=== PATIENT | male | born 1965 ===

== ENCOUNTER 2022-01-11 06:40 | Outpatient (CLI) | payer OTHER ==
--- NOTE | 2022-01-11 15:48 | XRAY Report ---
PROCEDURE: Lumbar Spine 2 View INDICATIONS: Lower back pain TECHNIQUE: 2 views of the lumbar spine were acquired. COMPARISON: None. FINDINGS: Bones: 5 [id number] vertebrae are present. There is trace retrolisthesis of L2 on L3, L3 on L4 . Mild to moderate disc and foraminal narrowing are noted at L5-S1. No vertebral body compression fra ctures. No suspicious bony lesions. Soft tissues: Overlying bowel gas pattern is normal. No suspicious soft tissue calcifications. IMPRESSION: Degenerative changes most notable at L5-S1 as above. Reviewed by: Indigo Gross MD on 01/11/2022 3:46 PM PST Approved by: Indgio Gross MD on 01/11/2022 3:46 PM PST Station ID: [id number]
== END 2022-01-11 06:41 | disposition home or self-care (01) ==
LOC: DI 06:40
PROVIDERS: ATTEND Student in an Organized Health Care Education/Training Program
DX: M47.817 Spondylosis without myelopathy or radiculopathy, lumbosacral region (principal); M43.16 Spondylolisthesis, lumbar region

== ENCOUNTER 2022-02-18 06:42 | Outpatient (CLI) | payer OTHER ==
[2022-02-18] MEDS ORDERED: IOVERSOL 320 100 ML VIAL IVP ONE ×2 (06:55→08:04)
[2022-02-18] MEDS ORDERED: IOVERSOL 320 50 ML VIAL ONE (07:09)
[2022-02-18] MEDS ORDERED: IOVERSOL 320 50 ML VIAL PO ONE (08:04)
--- NOTE | 2022-02-18 10:26 | CT Report ---
PROCEDURE: Abdomen/Pelvis W INDICATIONS: ABD PAIN CONTRAST: IV CONTRAST: Optiray 320 ml: 100 PO CONTRAST: Optiray 320 ml50 TECHNIQUE: After the administration of oral and intravenous contrast, 5 mm thick sections acquired from the diap hragms to the symphysis. 5 mm thick coronal and sagittal reformats were acquired. For radiation dos e reduction, the following was used: automated exposure control, adjustment of mA and/or kV accordin g to patient size. COMPARISON: None. FINDINGS: Image quality: Excellent. ABDOMEN: Lung bases: Lung bases are clear. Heart size is normal. Solid organs: Liver and spleen are normal in size and enhancement. Gallbladder is unremarkable. Bi liary system is non dilated. Pancreas enhances normally. No adrenal nodules. Kidneys demonstrate n ormal size and enhancement, without hydronephrosis. Small hypodensities in both kidneys are most lik dominic cysts. Peritoneum and bowel: Multiple diverticula are seen in the colon without signs of acute diverticulit is. Normal appendix. No free fluid or air. Nodes and vessels: No retroperitoneal or mesenteric adenopathy by size criteria. Aorta and inferior vena cava are normal in size. Miscellaneous: No ventral hernias. PELVIS: Genitourinary: Bladder wall thickness is normal. Miscellaneous: No inguinal hernias or adenopathy. Bones: No suspicious bony lesions. No vertebral body compression fractures. IMPRESSION: 1. No acute abnormality is identified in the abdomen or pelvis. 2. Colonic diverticulosis without signs of acute diverticulitis. Reviewed by: Anshu Mcwilliams MD on 02/18/2022 10:25 AM PDT Approved by: Anshu Mcwilliams MD on 02/18/2022 10:25 AM PDT Station ID: [id number]
== END 2022-02-18 06:43 | disposition home or self-care (01) ==
LOC: DI 06:42
PROVIDERS: ATTEND Student in an Organized Health Care Education/Training Program
DX: R10.9 Unspecified abdominal pain (principal); K57.30 Diverticulosis of large intestine without perforation or abscess without bleeding
CPT/HCPCS: 74177; Q9967

== ENCOUNTER 2023-04-25 03:51 | Emergency (ER) | payer OTHER ==
--- NOTE | 2023-04-25 03:55 | ED Physician Documentation ---
PD HPI CHEST PAIN - Stated complaint Stated Complaint: CHEST PX/SOA - History obtained from History obtained from: Patient - Additional information Additional information: HPI from patient. Patient complains of chest pain that has been episodic for the past 3 weeks. He describes the chest pain as dull, and indicates it is left of midline anterior chest. He says the episodes last anywhere from a few minutes to a few hours. He has not noticed any inciting, exacerbating, or ameliorating factors regarding the chest pain. He says that sometimes the pain will radiate towards the lower chest, but it does not radiate to his neck or extremities. He also has had some episodes radiating to the back. On my HPI, he denies shortness of breath. Patient was evaluated by his primary care provider last week for these symptoms. Patient says he had EKG and some outpatient blood test without concerning or diagnostic findings. He does recall that he was told his potassium was slightly low, specifically recalls the potassium level was 3.4. Patient says he had a stress test in 2020 and that the results were unremarkable. He says he does not have any known history of myocardial infarction or angina. Review of Systems Constitutional: denies: Fever, Chills, Sweats Cardiac: reports: Chest pain / pressure. denies: Palpitations, Pedal edema, Calf pain Respiratory: reports: Reviewed and negative GI: reports: Reviewed and negative PD PAST MEDICAL HISTORY - Past Medical History Past Medical History: Yes Cardiovascular: Hypertension, High cholesterol - Allergies Allergies/Adverse Reactions: Allergies Allergy/AdvReac Type Severity Reaction Status Date / Time No Known Drug Allergies Allergy Verified 04/25/23 04:07 PD ED PE NORMAL - Vitals Vital signs reviewed: Yes - General General: Alert and oriented X 3, No acute distress, Well developed/nourished - Neck Neck: Supple, no meningeal sign - Cardiac Cardiac: RRR, No gallop, No rub - Respiratory Respiratory: No respiratory distress, Clear bilaterally - Abdomen Abdomen: Normal bowel sounds, Soft, Non tender - Derm Derm: Normal color, Warm and dry - Extremities Extremities: No edema PD ED PE EXPANDED - Cardiac Cardiac: Murmur Present (1/6 mid-systolic murmur limited to left second intercostal space) Results - Vitals Vitals: Vital Signs - 24 hr 04/25/23 04/25/23 04/25/23 04:01 04:29 05:07 Temperature 36.9 C Heart Rate 96 77 70 Respiratory 18 15 13 Rate Blood Pressure 163/92 H 162/90 H 133/78 H O2 Saturation 100 100 100 04/25/23 04/25/23 04/25/23 05:30 06:00 06:17 Temperature Heart Rate 68 73 67 Respiratory 14 15 17 Rate Blood Pressure 131/86 H 131/86 H 121/72 O2 Saturation 99 100 100 Oxygen O2 Source Room air - EKG (time done) No standard instances EKG releavant findings:: EKG personally interpreted by author of this note. Relevant findings are: Rate: Rate (enter#) (83) Rhythm: NSR [place]: Normal Intervals: Normal NV QRS: Normal Ischemia: Normal ST segments - Labs Labs: Laboratory Tests 04/25/23 04/25/23 04/25/23 04:05 04:05 04:05 WBC 10.9 H RBC 5.55 Hgb 15.8 Hct 46.6 MCV 84.0 MCH 28.5 MCHC 33.9 RDW 13.0 Plt Count 242 MPV 10.4 Neut # (Auto) Not Reportable Lymph # (Auto) Not Reportable [place] # (Auto) Not Reportable Eos # (Auto) Not Reportable Baso # (Auto) Not Reportable Absolute Nucleated RBC Not Reportable Total Counted 100 Band Neuts % (Manual) 1 Abnorm Lymph % (Manual) 0 Nucleated RBC % Not Reportable Neutrophils # (Manual) 3.7 Lymphocytes # (Manual) 6.0 H Monocytes # (Manual) 0.4 Eosinophils # (Manual) 0.5 Basophils # (Manual) 0.2 H Differential Comment MANUAL DIFFERENTIAL WBC Morphology NORMAL APPEARANCE Platelet Estimate NORMAL (130-450,000) Platelet Morphology NORMAL APPEARANCE RBC Morph Micro Appear NORMAL APPEARANCE Sodium 141 Potassium 3.1 L Chloride 104 Carbon Dioxide 25 Anion Gap 12.0 BUN 14 Creatinine 0.9 Estimated GFR (MDRD) 87 L Glucose 129 H Calcium 8.8 Total Bilirubin 0.5 AST 23 ALT 22 Alkaline Phosphatase 51 Troponin I High Sens < 2.3 L Total Protein 8.1 Albumin 4.3 Globulin 3.8 Albumin/Globulin Ratio 1.1 Lipase 34 - Rads (name of study) chest xray Relevant Findings:: Prelim report reviewed, EMP independent interpretation of test (I reviewed these images and my interpretation is no acute abnormality. normal heart size. ), See rad report PD Medical Decision Making - ED course Complexity details: reviewed results, re-evaluated patient, considered differential, d/w patient ED course: Tests ordered and results reviewed by me: EKG, chest x-ray, CBC, ER abdominal panel, high-sensitivity troponin. There are no concerning or diagnostic findings on these tests. Incidental note is made of mild hypokalemia (potassium level 3.1). For this, he is given 25 mill equivalents of potassium bicarbonate orally. There were no abnormalities on the EKG, and his high-sensitivity troponin is normal (less than 2.3). Vital signs are within normal limits during ED stay except for mild hypertensive re adings early in the ED stay which corrected without intervention during observation in the ER. Etiology of patient's symptoms is not apparent at this time. Results are reviewed with the patient, and I advised him to follow-up with his primary care provider for reevaluation of the chest pain as well as the heart murmur and hypokalemia. Return precautions are also reviewed with the patient. Departure - Departure Disposition: 01 Home, Self Care Clinical Impression: Hypokalemia Chest pain Qualifiers: Chest pain type: unspecified Qualified Code(s): R07.9 - Chest pain, unspecified Condition: Good Instructions: ED Chest Pain Atypical Unkn Cause, ED Potassium Deficiency Comments: There were no concerning or diagnostic findings on tonight's tests. As we discussed, your potassium was low. It is not nearly low enough to cause symptoms nor immediate concern, but you should mention this to your primary care provider the next time that you see them, as they might want to recheck your level in the coming weeks. Tonight potassium level was 3.1. You are given a dose of oral (liquid) potassium in the emergency department to try to raise your potassium level towards a normal range. I heard a slight murmur on the cardiac exam tonight. As you were not told in the past about a heart murmur, I presume this is a new finding. As we discussed, it is very subtle and is also not cause for alarm nor immediate concern; however, it is important that you mention this to your primary care provider when you follow-up with them. At your primary care provider's discretion, further testing might be indicated if they also hear a heart murmur when they perform a follow-up exam. Lastly, it is important to follow-up for the chest pain that was the primary reason you came into the emergency department tonight. Although the tests performed tonight are not indicative of an obvious and/or concerning cause of your chest pain, further testing might be indicated, particularly if the symptoms continue to recur. Discharge Date/Time: 04/25/23 06:23
[2023-04-25 04:39] LABS: BASOPHILS % (AUTO) 1.1 %; EOSINOPHILS % (AUTO) 5.6 %; HCT - HEMATOCRIT 46.6 % (42.0-52.0); HGB - HEMOGLOBIN 15.8 g/dL (14.0-18.0); LYMPHOCYTES % (AUTO) 57.5 %; MEAN CORPUSCULAR HEMOGLOBIN 28.5 pg (27.0-31.0); MEAN CORPUSCULAR HGB CONC 33.9 g/dL (32.0-36.0); MEAN PLATELET VOLUME 10.4 fL (7.4-11.4); NEUTROPHILS % (AUTO) 28.6 %; PLT - PLATELET COUNT 242 10^3/uL (130-450); RED BLOOD COUNT 5.55 10^6/uL (4.70-6.10); WHITE BLOOD COUNT 10.9 x10^3/uL (4.8-10.8)
[2023-04-25 04:40] LABS: ABNORMAL LYMPHS % (MANUAL) 0 %
[2023-04-25 04:48] LABS: ALBUMIN 4.3 g/dL (3.2-5.5); ALBUMIN/GLOBULIN RATIO 1.1 (1.0-2.2); BILIRUBIN,TOTAL 0.5 mg/dL (0.2-1.0); CALCIUM 8.8 mg/dL (8.5-10.3); CREATININE 0.9 mg/dL (0.6-1.2); POTASSIUM 3.1 mmol/L (3.5-5.0); TOTAL PROTEIN 8.1 g/dL (6.7-8.2)
[2023-04-25 04:54] LABS: BAND NEUTROPHILS % (MANUAL) 1 %; BASOPHILS # (MANUAL) 0.2 10^3/uL (0-0.1); BASOPHILS % (MANUAL) 2 %; DIFFERENTIAL COMMENT MANUAL DIFFERENTIAL; EOSINOPHILS # (MANUAL) 0.5 10^3/uL (0-0.7); LYMPHOCYTES % (MANUAL) 55 %; MONOCYTES # (MANUAL) 0.4 10^3/uL (0.0-1.0); NEUTROPHILS # (MANUAL) 3.7 10^3/uL (1.5-6.6); PLATELET ESTIMATE, MANUAL NORMAL (130-450,000) (NORMAL); PLATELET MORPHOLOGY NORMAL APPEARANCE (NORMAL); RBC MORPHOLOGY (MULTIPLE) NORMAL APPEARANCE (NORMAL); WBC MORPHOLOGY (MULTIPLE) NORMAL APPEARANCE (NORMAL)
[2023-04-25] MEDS ORDERED: POTASSIUM BICARB 25 MEQ TABLET PO STA (05:54)
[2023-04-25 06:22] VITALS: BP 121/72
--- NOTE | 2023-04-25 09:05 | XRAY Report ---
PROCEDURE: Chest 2 View X-Ray INDICATIONS: chest pain TECHNIQUE: 2 views of the chest were acquired. COMPARISON: None. FINDINGS: Surgical changes and devices: None. Lungs and pleura: No pleural effusions or pneumothorax. Lungs are clear. Mediastinum: Mediastinal contours appear normal. Heart size is normal. Bones and chest wall: No suspicious bony lesions. Overlying soft tissues appear unremarkable. IMPRESSION: No acute cardiopulmonary process. Reviewed by: Indigo Gross MD on 04/25/2023 9:04 AM PDT Approved by: Indigo Gross MD on 04/25/2023 9:04 AM PDT Station ID: [id number]
== END 2023-04-25 06:23 | disposition home or self-care (01) ==
LOC: ED 03:51
DX: R07.9 Chest pain, unspecified (principal); E87.6 Hypokalemia; I10 Essential (primary) hypertension; E78.00 Pure hypercholesterolemia, unspecified
CPT/HCPCS: 36415; 71046; 80053; 83690; 84484; 85025; 93005; 99283; 99284; A9270

== ENCOUNTER 2023-06-14 07:59 | Outpatient (CLI) | payer OTHER | END 2023-06-14 08:00 | disposition home or self-care (01) | LOC: DI 07:59 | PROVIDERS: ATTEND Student in an Organized Health Care Education/Training Program | DX: R07.9 Chest pain, unspecified (principal); I77.810 Thoracic aortic ectasia | CPT/HCPCS: 93306 ==